=== PATIENT | female | born 1995 | race Caucasian/White ===

== ENCOUNTER 2019-02-25 16:03 | Emergency (ER) | payer OTHER ==
[~2019-02-25] VITALS: Ht 165.1 cm; Wt 63.5 kg
[~2019-02-25 16:03] MED LIST: DEPO-PROVER150 MG/M1 IM; FLAGYL500 MG PO; IBUPROFEN 400400 M2 PO; PHENERGAN 25 MG25 M1 PO; PROMS25 WY RECTAL; REGLAN 10 MG TA10 MG PO; TRAMADOL 50 MG50 MG PO; TRINATE TABLET1 TAB PO
[2019-02-25 16:32] VITALS: BP 110/78
== END 2019-02-25 17:01 | disposition home or self-care (01) ==
LOC: ER 16:03
DX: J30.9 Allergic rhinitis, unspecified (principal); J02.9 Acute pharyngitis, unspecified; F17.210 Nicotine dependence, cigarettes, uncomplicated